=== PATIENT | male | born 1955 | race Caucasian/White ===

== ENCOUNTER → 2019-04-28 11:53 | Outpatient (CLI) | payer OTHER, SELFPAY ==
--- NOTE | 2019-04-28 11:55 | DI.RAD.S_ITS ---
PROCEDURE: XR SHOULDER RT MIN 2V INDICATIONS: right shoulder pain TECHNIQUE: 3 views of the shoulder were acquired. COMPARISON: None. FINDINGS: Bones: No fractures or dislocations. No suspicious bony lesions. Visualized ribs appear intact. Soft tissues: No suspicious soft tissue calcifications. IMPRESSION: Normal right shoulder radiographs. Dictated by: Halie Landry M.D. on 04/28/2019 at 17:43 Approved by: Halie Landry M.D. on 04/28/2019 at 17:43
[2019-04-28 12:29] LABS: BUN Creatinine Ratio 22.2 (6-22); Blood Urea Nitrogen 20 mg/dL (9-20); Carbon Dioxide 27 mmol/L (22-32); Chloride 103 mmol/L (98-107); Estimated Glomerular Filt Rate > 60.0 mL/min (>60); Glucose 108 mg/dL (80-110); HEMOLYSIS < 15 (0-50); Potassium 4.4 mmol/L (3.4-5.1); Sodium 139 mmol/L (137-145)
[2019-04-28 16:09] LABS: Vitamin D 25 Hydroxy (D3) 25.7 ng/mL (30.0-100.0)
== END ==
PROVIDERS: PCP Student in an Organized Health Care Education/Training Program; Visit Provider Student in an Organized Health Care Education/Training Program
DX: M25.511 Pain in right shoulder (principal); E55.9 Vitamin D deficiency, unspecified; G47.33 Obstructive sleep apnea (adult) (pediatric); N13.8 Other obstructive and reflux uropathy; N40.1 Benign prostatic hyperplasia with lower urinary tract symptoms; N52.9 Male erectile dysfunction, unspecified
CPT/HCPCS: 36415; 73030; 80048; 82306

== ENCOUNTER 2019-08-14 08:12 | Day surgery (SDC) | payer OTHER, SELFPAY ==
--- NOTE | 2019-08-14 | PATH_ITS ---
[facility] Accession Number: [id number] . 01 Material submitted: . body - POLYP AT 50 CM . 02 Diagnosis: Colon, Polyp at 50 cm, Biopsy: Hyperplastic polyp. Additional levels were examined. [facility] 08/18/2019 1503 Local . 02 Electronically signed: . Kaylie Martinez MD, Pathologist NPI- [id number] . 01 Gross description: . POLYP AT 50 CM: Received in formalin is 1 fragment(s) of penaloza, soft tissue measuring 0.3 x 0.2 x 0.2 cm submitted entirely in 1 cassette(s) /DM 08/14/2019 1936 Local . 02 Pathologist provided ICD-10: K63.5 . 02 CPT . 991929 Performed at: 01 [facility] [address] [id number] MD Cody Hansen MD Phone: [phone] Performed at: 02 [facility] [place] [address] [place], [place] [id number] MD Kaylie Martinez MD Phone: [phone]
[2019-08-14] MEDS: SODIUM CHLORIDE 0.9% 1,000 ML 84 ML IV (08:26)
[2019-08-14 08:38] VITALS: BP 118/82; PULSE 67; RESP 16; TEMP 36.2; O2SAT 94; BMI 30.2
--- NOTE | 2019-08-14 09:11 | PM.HP.1 ---
History of Present Illness History of Present Illness Date Patient Seen: 08/14/19 Time Patient Seen: 09:11 Chief complaint: [id number] Narrative: This is a 64-year-old man who is here for follow-up screening colonoscopy. His 1st colonoscopy was over 10 years ago. He was told that he is now due for a follow-up colonoscopy. He denies any melena, hematochezia, unexplained weight loss, abdominal pain, or other concerning symptoms. He has a significant history of sleep apnea and is awaiting a new BiPAP machine which he says that he will be using at home. Explained that we may need to use an oral airway during this procedure or other interventions to make sure he is well oxygenated. ROS: Thirteen system review is negative other than as mentioned below and in HPI. PE: GENERAL: Well groomed and cooperative. Appears stated age. Answers questions promptly and appropriately. Vital signs noted. HENT: Normocephalic, atraumatic. Hearing intact. Oral mucosa is pink and moist. EYES: Conjunctiva pink, sclera white, no periorbital swelling. CARDIOVASCULAR: Regular rate. No pedal edema. RESPIRATORY: Normal respiratory rate, breathing comfortably on room air. GASTROINTESTINAL: Abdomen soft and non-distended GENITALURINARY: No flank tenderness. MUSCULOSKELETAL: Equal tone and mass bilaterally. SKIN: Warm, dry, soft, appropriate color for ethnicity. No other lesions, rashes, or wounds. NEURO: Alert and Oriented X 3. No gross sensory deficits, or cognitive issues. PSYCH: Appropriate affect and mood. Patient History Medical History GERD (gastroesophageal reflux disease) (Chronic) History of degenerative joint disease (Chronic) Insomnia (Chronic) Lumbago (Chronic) Obesity (BMI 30.0-34.9) (Chronic) Obstructive sleep apnea syndrome (Chronic 09/23/15) Family & Social History Social History: household members significant other Tobacco & Substance use: Smoking Status Never smoker Meds Home Medications and Allergies Home Medications Medication Instructions Recorded Confirmed Type ibuprofen 200 mg PO Q6H #0 03/31/12 08/14/19 History esomeprazole magnesium [Nexium] 40 mg PO Q DAY #30 07/17/12 08/14/19 Rx cyclobenzaprine 10 mg PO TIDP PRN #45 tab 12/09/17 08/14/19 Rx sildenafil (pulm.hypertension) 20 20 mg PO DAILY PRN #30 tab 02/25/19 08/14/19 Rx mg tablet fenofibrate nanocrystallized 145 145 mg PO Q DAY #90 tab 05/01/19 08/14/19 Rx mg tablet Allergies Allergy/AdvReac Type Severity Reaction Status Date / Time No Known Drug Allergies Allergy Verified 08/14/19 08:22 Exam Vital Signs (past 8 hours): - 08/14/19 08:38 Temperature 97.2 F L Pulse Rate 67 Respiratory Rate 16 Blood Pressure 118/82 Pulse Oximetry 94 Oxygen Delivery Method Room Air Assessment & Plan Assessment and plan (1) Colon cancer screening: Current visit: Yes Status: Acute Assessment & Plan narrative: A 64-year-old man here for follow-up screening colonoscopy. Risks and benefits of colonoscopy and possible polypectomy were discussed with the patient including risk of bleeding, perforation, need for additional procedures, and the risks of anesthesia. The patient desires to proceed with his colonoscopy procedure. Plan: Proceed with colonoscopy Time Spent With Patient Time with patient: 15-24 minutes
[2019-08-14 09:42] VITALS: BP 124/82; PULSE 64; RESP 12; TEMP 36.1; O2SAT 92
[2019-08-14] MEDS: MIDAZOLAM 5 MG/5 ML VIAL IV (09:42)
--- NOTE | 2019-08-14 09:42 | PM.OP.ENDO ---
Operative Date/Time/Diagnoses Date of procedure: 08/14/19 Time of procedure: 09:42 Pre-op diagnosis: Average risk for colon cancer, appropriate age for repeat screening colonoscopy Post-op diagnosis: other (Colon polyps) Procedure & Clinicians Study performed: Colonoscopy, polypectomy x1 with cold forceps Same procedure as scheduled: Yes Indications: Average risk for colon cancer Surgeon: Brea Gale Procedure Notes SCOAP/Timeout: Performed Procedure in detail: The patient was brought to the room and placed in left lateral decubitus position with all bony prominences padded. A time-out was performed and then the patient was given procedural sedation starting with [4] mg of Versed and [100] mcg of fentanyl. Vitals were monitored throughout the procedure and remained stable. Once adequately sedated the procedure was begun. A rectal exam was performed revealing [no abnormalities]. The colonoscope was then introduced to the rectum and advanced to the cecum in the usual fashion. []The cecum was identified by the appendiceal orifice, the mucosal try fold, and the ileocecal valve. The scope was then retracted while rotating side to side and examining each mucosal fold. [At 50 cm from the anal verge a small sessile polyp was found and removed completely with cold forceps.] At the conclusion procedure retroflexion was performed and [small grade 1-2 internal hemorrhoids without stigmata of bleeding were seen]. The scope was then withdrawn from the rectum the procedure was concluded. The patient tolerated the procedure well was transferred to the PACU in stable condition. Scope withdrawal time: 12 Sedation minutes: 23 Findings: polyp Specimen(s): other (One small flat polyp was removed at 50 cm from the anal verge, and sent for pathology) Complications: none Impression: Relatively normal colon, with a single polyp found and removed Post-procedure Recommendations: Colonscopy in 10 years (If pathology results are non neoplastic) Follow up: as needed Disposition: PACU
[2019-08-14] MEDS: fentaNYL 250 MCG/5 ML INJ IV (09:43)
[2019-08-14 09:47] VITALS: BP 119/81; PULSE 68; RESP 12; O2SAT 97
[2019-08-14 09:52] VITALS: BP 111/81; PULSE 67; RESP 11; O2SAT 95
[2019-08-14 09:59] VITALS: BP 114/80; PULSE 65; RESP 12; TEMP 36.6; O2SAT 96
[2019-08-14 10:19] VITALS: BP 115/80; PULSE 62; TEMP 36.3; O2SAT 96
== END 2019-08-14 10:34 | disposition home or self-care (01) ==
PROVIDERS: PCP Student in an Organized Health Care Education/Training Program; Visit Provider Surgery
PROC: 0DJD8ZZ Inspection of Lower Intestinal Tract, Via Natural or Artificial Opening Endoscopic (ICD-10-PCS; CPT 45378; principal; 2019-08-14 09:45)
DX: Z12.11 Encounter for screening for malignant neoplasm of colon (principal); K64.0 First degree hemorrhoids; K63.5 Polyp of colon
CPT/HCPCS: 45380; 99152; J2250; J3010

== ENCOUNTER 2019-09-09 07:30 | Outpatient (RCR) | payer OTHER, SELFPAY ==
--- NOTE | 2019-06-30 12:59 | PT.OIE ---
Current Diagnoses Pain in right shoulder (06/30/19) Past Medical History (Last Reviewed 05/25/19 @ 16:33 by Chester Freire MD) GERD (gastroesophageal reflux disease) (Chronic) History of degenerative joint disease (Chronic) Insomnia (Chronic) Lumbago (Chronic) Obesity (BMI 30.0-34.9) (Chronic) Obstructive sleep apnea syndrome (Chronic 09/23/15) Visit Care Team Role Provider Type Jamari Elizabeth MD Attending Provider Physician Primary Care Provider Specialty: Internal Medicine Address: [address] [place] [address], [facility] Email: [email or web address] Physical Therapy Initial Evaluation PT-OP-A Visit Information Start: 06/30/19 07:28 Freq: Status: Active Protocol: Document 06/30/19 07:30 AMB (Rec: 06/30/19 09:44 AMB [email or web address]) Out-Patient Physical Therapy Visit Information Visit Information Visit Type Initial Evaluation Visit Start Time 07:30 Visit Stop Time 08:14 Total Visit Minutes 44 Visit Number 1 PT-OP-B Current Condition Start: 06/30/19 07:28 Freq: Status: Active Protocol: Document 06/30/19 07:30 AMB (Rec: 06/30/19 09:44 AMB [email or web address]) Current Condition History of Current Condition Onset Date 1 year ago Current Complaints R shoulder pain with reaching History of Current Condition Min reports he fell while hiking 30 years ago on his lateral shoulder. His shoulder was painful for about a year after that fall, and just got better on its own. Now for the past year it has been more painful again. No pain at rest, but pain with reaching that persists for about 30 seconds. Treatment Goals Patient/Caregiver Goals Return to reaching overhead without pain, return to basketball, be able to throw overhead. Current Functional Impairments (Reported) Functional Limitations- ADL's Pain with reaching behind back , reaching into backseate of car. Personal Factors Other Personal Factors That May Effect Retiring soon, so will be Therapy/Recovery going on a lot of trips soon PT-OP-C Subjective Start: 06/30/19 07:28 Freq: Status: Active Protocol: Document 06/30/19 07:30 AMB (Rec: 06/30/19 09:44 AMB [email or web address]) Patient Questionnaires Quick Dash- Upper Extremity Quick Dash UE Score 20 Quick Dash UE Impairment 20 to 39% Impaired (Score 20- 39) OP-PT Pain Assessment Location Right Posterior Shoulder Intensity 6 Scale Used Numeric (1 - 10) Pain Aggravating Factors Activity,Exercise,Lifting PT-OP-J Posture/Palpation/Skin Start: 06/30/19 07:28 Freq: Status: Active Protocol: Document 06/30/19 07:30 AMB (Rec: 06/30/19 10:00 AMB [email or web address]) Posture Evaluation Comments Posture Comments Increased thoracic kyphosis with forward head and rounded shoulders, no scapular winging . Palpation Assessment Location One Palpation Location R shoulder Palpation Details No tenderness over biceps or supraspinatus tendons. Pain is more over infraspinatus and teres minor but no pain with palpation. PT-OP-K Range of Motion Start: 06/30/19 07:28 Freq: Status: Active Protocol: Document 06/30/19 07:30 AMB (Rec: 06/30/19 10:00 AMB [email or web address]) Shoulder Goniometric Range of Motion Shoulder Right Passive Testing Position Supine External Rotation at 90 degrees 25 Abduction Internal Rotation 25 Right Active Testing Position Standing Flexion 155 Abduction 130 External Rotation at 0 degrees Abduction 65 Internal Rotation Behind Back (text) T12 Left Active Testing Position Standing Flexion 170 Abduction 180 PT-OP-L Special Tests Start: 06/30/19 07:28 Freq: Status: Active Protocol: Document 06/30/19 07:30 AMB (Rec: 06/30/19 10:00 AMB [email or web address]) Special Tests Shoulder Special Tests Lift-Off Rotator Cuff Test Results positive on R Neer Impingement Test Results positive on R Abraham Cr Impingement Test Results positive on R PT-OP-M Strength Start: 06/30/19 07:28 Freq: Status: Active Protocol: Document 06/30/19 07:30 AMB (Rec: 06/30/19 10:00 AMB [email or web address]) Shoulder Strength Shoulder Manual Muscle Testing Right Flexion 4+ Good+ Extension 4+ Good+ Abduction (C5) 4 Good External Rotation 4+ Good+ Internal Rotation 4+ Good+ Left Flexion 5 Normal Extension 5 Normal Abduction (C5) 4+ Good+ External Rotation 5 Normal Internal Rotation 5 Normal PT-OP-Q Treatments Start: 06/30/19 07:28 Freq: Status: Active Protocol: Document 06/30/19 07:30 AMB (Rec: 06/30/19 10:00 AMB [email or web address]) Therapeutic Exercises Standing Exercises 3 Standing Exercise Name pec stretch doorway and corner Comments increase pain 2 Standing Exercise Name cross body stretch Reps/Minutes 30x2 Comments HEP 1 Standing Exercise Name isometrics at wall: ER, abd, ext Reps/Minutes 5x5 Comments HEP PT-OP-T Assessment and Plan Start: 06/30/19 07:28 Freq: Status: Active Protocol: Document 06/30/19 07:30 AMB (Rec: 06/30/19 10:02 AMB [email or web address]) Physical Therapy Assessment Rehab Potential Rehabilitation Potential Good Evaluation Complexity Number of Personal Factors/Comorbidities 1-2 Number of Body Systems Impaired 4 or More Clinical Presentation at Evaluation Stable Impairments Impairments Functional Activities,Pain,ROM ,Strength Goals Two Impairment pain Short Term Goal (STG) Min will reach behind his back without increasing shoulder pain. STG Duration 4 weeks Assisted Goal (LTG) Min will reach behind him while in his car without an increase in shoulder pain. LTG Duration 8 weeks One Impairment ROM Short Term Goal (STG) Min will increase his flexion AROM to 165 degrees without shoulder pain. STG Duration 4 weeks Assisted Goal (LTG) Min will increase his shoulder abduction AROM to 165 degrees without pain. LTG Duration 8 weeks Assessment Summary Assessment Min attends physical therapy with signs and symptoms consistent with glenohumeral impingement due to injury decades ago that has resurfaced. His strength tests were good, but special tests were consistent with mild rotator cuff pathology. Fortunately his range of motion and strength are reasonably well maintained, so if we stabilize the area well he should be able to return to a high level of function, although overhead throwing will likely remain challenging . Physical Therapy Plan Frequency and Duration Frequency of Treatment 2x/Week Duration of Treatment 8 weeks Plan of Care Start Date 06/30/19 Plan of Care End Date 08/25/19 Therapeutic Interventions Therapeutic Interventions Home Exercise Program,Joint Mobilizations,Manual Therapy, Neuromuscular Re-education, Therapeutic Activities, Therapeutic Exercises Modalities Cold Pack/Ice Massage,Electric Stimulation,Hot Packs, Ultrasound Next Visit Focus/Plan Next Note Type Treatment Note Next Visit Plan Progress strengthening HEP, progress postural awareness/ scapular stability, joint mobilization as needed
--- NOTE | 2019-07-02 07:30 | PT.OTN ---
Current Diagnoses Pain in right shoulder (07/02/19) Physical Therapy Treatment Note PT-OP-A Visit Information Start: 06/30/19 07:28 Freq: Status: Active Protocol: Document 07/02/19 07:30 AMB (Rec: 07/02/19 08:40 AMB [email or web address]) Out-Patient Physical Therapy Visit Information Visit Information Visit Type Treatment Note Visit Start Time 07:30 Visit Stop Time 08:14 Total Visit Minutes 44 Visit Number 2 PT-OP-B Current Condition Start: 06/30/19 07:28 Freq: Status: Active Protocol: Document 06/30/19 07:30 AMB (Rec: 06/30/19 09:44 AMB [email or web address]) Current Condition History of Current Condition Onset Date 1 year ago Current Complaints R shoulder pain with reaching History of Current Condition Min reports he fell while hiking 30 years ago on his lateral shoulder. His shoulder was painful for about a year after that fall, and just got better on its own. Now for the past year it has been more painful again. No pain at rest, but pain with reaching that persists for about 30 seconds. Treatment Goals Patient/Caregiver Goals Return to reaching overhead without pain, return to basketball, be able to throw overhead. Current Functional Impairments (Reported) Functional Limitations- ADL's Pain with reaching behind back , reaching into backseate of car. Personal Factors Other Personal Factors That May Effect Retiring soon, so will be Therapy/Recovery going on a lot of trips soon PT-OP-C Subjective Start: 06/30/19 07:28 Freq: Status: Active Protocol: Document 07/02/19 07:30 AMB (Rec: 07/02/19 08:41 AMB [email or web address]) OP-PT Subjective Patient Comments Patient Comments Pt is doing well, a little sore from working in the field yesterday. PT-OP-J Posture/Palpation/Skin Start: 06/30/19 07:28 Freq: Status: Active Protocol: Document 06/30/19 07:30 AMB (Rec: 06/30/19 10:00 AMB [email or web address]) Posture Evaluation Comments Posture Comments Increased thoracic kyphosis with forward head and rounded shoulders, no scapular winging . Palpation Assessment Location One Palpation Location R shoulder Palpation Details No tenderness over biceps or supraspinatus tendons. Pain is more over infraspinatus and teres minor but no pain with palpation. PT-OP-K Range of Motion Start: 06/30/19 07:28 Freq: Status: Active Protocol: Document 06/30/19 07:30 AMB (Rec: 06/30/19 10:00 AMB [email or web address]) Shoulder Goniometric Range of Motion Shoulder Right Passive Testing Position Supine External Rotation at 90 degrees 25 Abduction Internal Rotation 25 Right Active Testing Position Standing Flexion 155 Abduction 130 External Rotation at 0 degrees Abduction 65 Internal Rotation Behind Back (text) T12 Left Active Testing Position Standing Flexion 170 Abduction 180 PT-OP-L Special Tests Start: 06/30/19 07:28 Freq: Status: Active Protocol: Document 06/30/19 07:30 AMB (Rec: 06/30/19 10:00 AMB [email or web address]) Special Tests Shoulder Special Tests Lift-Off Rotator Cuff Test Results positive on R Neer Impingement Test Results positive on R Abraham Cr Impingement Test Results positive on R PT-OP-M Strength Start: 06/30/19 07:28 Freq: Status: Active Protocol: Document 06/30/19 07:30 AMB (Rec: 06/30/19 10:00 AMB [email or web address]) Shoulder Strength Shoulder Manual Muscle Testing Right Flexion 4+ Good+ Extension 4+ Good+ Abduction (C5) 4 Good External Rotation 4+ Good+ Internal Rotation 4+ Good+ Left Flexion 5 Normal Extension 5 Normal Abduction (C5) 4+ Good+ External Rotation 5 Normal Internal Rotation 5 Normal PT-OP-Q Treatments Start: 06/30/19 07:28 Freq: Status: Active Protocol: Document 07/02/19 07:30 AMB (Rec: 07/02/19 08:40 AMB [email or web address]) Therapeutic Exercises Prone Exercises 1 Prone Exercise Name I, T Reps/Minutes 10 Comments AROM Sidelying Exercises 2 Sidelying Exercise Name abduction Resistance #2 Reps/Minutes 2x10 Comments to 45 degrees 1 Sidelying Exercise Name ER Resistance 2# Reps/Minutes 1x10 Standing Exercises 5 Standing Exercise Name t band rows Resistance #2 t band Comments 2x10 4 Standing Exercise Name tband ER/IR Resistance #2 t band Reps/Minutes 1x10 2 Standing Exercise Name cross body stretch Reps/Minutes 30x2 Comments HEP Manual Therapy Treatment Joint Mobilizations 1 Joint GH Direction AP, inferior Comments with PROM flexion/ abduction Manual Techniques 1 Type contract relax Comments IR/ER PT-OP-T Assessment and Plan Start: 06/30/19 07:28 Freq: Status: Active Protocol: Document 07/02/19 07:30 AMB (Rec: 07/02/19 08:40 AMB [email or web address]) Physical Therapy Assessment Assessment Summary Assessment Eb is doing well with his exercises, but was a little sore with them. Tolerated t band and weights well, but prone Y,T was painful. Physical Therapy Plan Next Visit Focus/Plan Next Note Type Treatment Note Next Visit Plan Progress strengthening HEP, progress postural awareness/ scapular stability, joint mobilization as needed
--- NOTE | 2019-07-15 11:45 | PT.OTN ---
Current Diagnoses Pain in right shoulder (07/15/19) Physical Therapy Treatment Note PT-OP-A Visit Information Start: 06/30/19 07:28 Freq: Status: Active Protocol: Document 07/15/19 07:30 AMB (Rec: 07/15/19 07:36 AMB [email or web address]) Out-Patient Physical Therapy Visit Information Visit Information Visit Type Treatment Note Visit Start Time 07:31 Visit Stop Time 08:15 Total Visit Minutes 44 Visit Number 3 PT-OP-B Current Condition Start: 06/30/19 07:28 Freq: Status: Active Protocol: Document 06/30/19 07:30 AMB (Rec: 06/30/19 09:44 AMB [email or web address]) Current Condition History of Current Condition Onset Date 1 year ago Current Complaints R shoulder pain with reaching History of Current Condition Min reports he fell while hiking 30 years ago on his lateral shoulder. His shoulder was painful for about a year after that fall, and just got better on its own. Now for the past year it has been more painful again. No pain at rest, but pain with reaching that persists for about 30 seconds. Treatment Goals Patient/Caregiver Goals Return to reaching overhead without pain, return to basketball, be able to throw overhead. Current Functional Impairments (Reported) Functional Limitations- ADL's Pain with reaching behind back , reaching into backseate of car. Personal Factors Other Personal Factors That May Effect Retiring soon, so will be Therapy/Recovery going on a lot of trips soon PT-OP-C Subjective Start: 06/30/19 07:28 Freq: Status: Active Protocol: Document 07/15/19 07:30 AMB (Rec: 07/15/19 07:36 AMB [id number]) OP-PT Subjective Patient Comments Patient Comments Pt overall feels that things are progressing, able to reach a little more with less pain. PT-OP-J Posture/Palpation/Skin Start: 06/30/19 07:28 Freq: Status: Active Protocol: Document 06/30/19 07:30 AMB (Rec: 06/30/19 10:00 AMB [email or web address]) Posture Evaluation Comments Posture Comments Increased thoracic kyphosis with forward head and rounded shoulders, no scapular winging . Palpation Assessment Location One Palpation Location R shoulder Palpation Details No tenderness over biceps or supraspinatus tendons. Pain is more over infraspinatus and teres minor but no pain with palpation. PT-OP-K Range of Motion Start: 06/30/19 07:28 Freq: Status: Active Protocol: Document 06/30/19 07:30 AMB (Rec: 06/30/19 10:00 AMB [email or web address]) Shoulder Goniometric Range of Motion Shoulder Right Passive Testing Position Supine External Rotation at 90 degrees 25 Abduction Internal Rotation 25 Right Active Testing Position Standing Flexion 155 Abduction 130 External Rotation at 0 degrees Abduction 65 Internal Rotation Behind Back (text) T12 Left Active Testing Position Standing Flexion 170 Abduction 180 PT-OP-L Special Tests Start: 06/30/19 07:28 Freq: Status: Active Protocol: Document 06/30/19 07:30 AMB (Rec: 06/30/19 10:00 AMB [email or web address]) Special Tests Shoulder Special Tests Lift-Off Rotator Cuff Test Results positive on R Neer Impingement Test Results positive on R Abraham Cr Impingement Test Results positive on R PT-OP-M Strength Start: 06/30/19 07:28 Freq: Status: Active Protocol: Document 06/30/19 07:30 AMB (Rec: 06/30/19 10:00 AMB [email or web address]) Shoulder Strength Shoulder Manual Muscle Testing Right Flexion 4+ Good+ Extension 4+ Good+ Abduction (C5) 4 Good External Rotation 4+ Good+ Internal Rotation 4+ Good+ Left Flexion 5 Normal Extension 5 Normal Abduction (C5) 4+ Good+ External Rotation 5 Normal Internal Rotation 5 Normal PT-OP-Q Treatments Start: 06/30/19 07:28 Freq: Status: Active Protocol: Document 07/15/19 07:30 AMB (Rec: 07/15/19 11:45 AMB [email or web address]) Cardio Equipment Upper Body Ergometer (UBE) Duration (Minutes) 4 Other fwd, backward Therapeutic Exercises Supine Exercises 1 Supine Exercise Name scapular punch Resistance 5# Reps/Minutes 2x10 Sidelying Exercises 2 Sidelying Exercise Name abduction Resistance #2 Reps/Minutes 2x10 Comments to 45 degrees 1 Sidelying Exercise Name ER Resistance 2# Reps/Minutes 1x10 Standing Exercises 6 Standing Exercise Name extension, flexion, abduction Resistance #3 t band Reps/Minutes 2x10 ea 5 Standing Exercise Name t band rows Resistance #2 t band Comments 2x10 4 Standing Exercise Name tband ER/IR Resistance #2 t band Reps/Minutes 1x10 Manual Therapy Treatment Joint Mobilizations 1 Joint GH Direction AP, inferior Comments with PROM flexion/ abduction PT-OP-T Assessment and Plan Start: 06/30/19 07:28 Freq: Status: Active Protocol: Document 07/15/19 07:30 AMB (Rec: 07/15/19 07:36 AMB [id number]) Physical Therapy Assessment Assessment Summary Assessment Eb tolerated progression of exercises well. Physical Therapy Plan Next Visit Focus/Plan Next Note Type Treatment Note Next Visit Plan Progress strengthening HEP, progress postural awareness/ scapular stability, joint mobilization as needed
--- NOTE | 2019-08-10 12:51 | PT.OTN ---
Current Diagnoses Pain in right shoulder (08/10/19) Physical Therapy Treatment Note PT-OP-A Visit Information Start: 06/30/19 07:28 Freq: Status: Active Protocol: Document 08/10/19 08:15 AMB (Rec: 08/10/19 10:30 AMB [email or web address]) Out-Patient Physical Therapy Visit Information Visit Information Visit Type Treatment Note Visit Start Time 08:15 Visit Stop Time 08:55 Total Visit Minutes 40 Visit Number 4 PT-OP-B Current Condition Start: 06/30/19 07:28 Freq: Status: Active Protocol: Document 06/30/19 07:30 AMB (Rec: 06/30/19 09:44 AMB [email or web address]) Current Condition History of Current Condition Onset Date 1 year ago Current Complaints R shoulder pain with reaching History of Current Condition Min reports he fell while hiking 30 years ago on his lateral shoulder. His shoulder was painful for about a year after that fall, and just got better on its own. Now for the past year it has been more painful again. No pain at rest, but pain with reaching that persists for about 30 seconds. Treatment Goals Patient/Caregiver Goals Return to reaching overhead without pain, return to basketball, be able to throw overhead. Current Functional Impairments (Reported) Functional Limitations- ADL's Pain with reaching behind back , reaching into backseate of car. Personal Factors Other Personal Factors That May Effect Retiring soon, so will be Therapy/Recovery going on a lot of trips soon PT-OP-C Subjective Start: 06/30/19 07:28 Freq: Status: Active Protocol: Document 08/10/19 08:15 AMB (Rec: 08/10/19 10:30 AMB [email or web address]) OP-PT Subjective Patient Comments Patient Comments Pt is starting to notice some improvements, reaching behind him in the car is getting less painful. Although he can still notice pain at end range , he does not feel it as intense. PT-OP-J Posture/Palpation/Skin Start: 06/30/19 07:28 Freq: Status: Active Protocol: Document 06/30/19 07:30 AMB (Rec: 06/30/19 10:00 AMB [email or web address]) Posture Evaluation Comments Posture Comments Increased thoracic kyphosis with forward head and rounded shoulders, no scapular winging . Palpation Assessment Location One Palpation Location R shoulder Palpation Details No tenderness over biceps or supraspinatus tendons. Pain is more over infraspinatus and teres minor but no pain with palpation. PT-OP-K Range of Motion Start: 06/30/19 07:28 Freq: Status: Active Protocol: Document 08/10/19 08:33 AMB (Rec: 08/10/19 08:53 AMB [id number]) Shoulder Goniometric Range of Motion Shoulder Right Active Flexion 160 Abduction 135 PT-OP-L Special Tests Start: 06/30/19 07:28 Freq: Status: Active Protocol: Document 06/30/19 07:30 AMB (Rec: 06/30/19 10:00 AMB [email or web address]) Special Tests Shoulder Special Tests Lift-Off Rotator Cuff Test Results positive on R Neer Impingement Test Results positive on R Abraham Cr Impingement Test Results positive on R PT-OP-M Strength Start: 06/30/19 07:28 Freq: Status: Active Protocol: Document 06/30/19 07:30 AMB (Rec: 06/30/19 10:00 AMB [email or web address]) Shoulder Strength Shoulder Manual Muscle Testing Right Flexion 4+ Good+ Extension 4+ Good+ Abduction (C5) 4 Good External Rotation 4+ Good+ Internal Rotation 4+ Good+ Left Flexion 5 Normal Extension 5 Normal Abduction (C5) 4+ Good+ External Rotation 5 Normal Internal Rotation 5 Normal PT-OP-Q Treatments Start: 06/30/19 07:28 Freq: Status: Active Protocol: Document 08/10/19 08:15 AMB (Rec: 08/10/19 12:50 AMB [email or web address]) Cardio Equipment Upper Body Ergometer (UBE) Duration (Minutes) 4 Other fwd, backward Therapeutic Exercises Standing Exercises 6 Standing Exercise Name extension, flexion, abduction Resistance #3 t band Reps/Minutes 2x10 ea 5 Standing Exercise Name t band rows Resistance #3 t band Comments 2x10 4 Standing Exercise Name tband ER/IR Resistance #2 t band Reps/Minutes 1x10 3 Standing Exercise Name PNF D2 and D1 flexion Resistance #1 tband Reps/Minutes 2x10 1 Standing Exercise Name wall slide Reps/Minutes 20x2 Comments flexion and abduction Manual Therapy Treatment Joint Mobilizations 1 Joint GH Direction AP, inferior Comments with PROM flexion/ abduction PT-OP-T Assessment and Plan Start: 06/30/19 07:28 Freq: Status: Active Protocol: Document 08/10/19 08:15 AMB (Rec: 08/10/19 10:30 AMB [email or web address]) Physical Therapy Assessment Assessment Summary Assessment Stretching went well, PNF diagonals were challenging but doable with modifications. Physical Therapy Plan Next Visit Focus/Plan Next Note Type Treatment Note Next Visit Plan Progress strengthening HEP, progress postural awareness/ scapular stability, joint mobilization as needed
--- NOTE | 2019-08-12 16:18 | PT.OTN ---
Current Diagnoses Pain in right shoulder (08/12/19) Physical Therapy Treatment Note PT-OP-A Visit Information Start: 06/30/19 07:28 Freq: Status: Active Protocol: Document 08/12/19 08:15 AMB (Rec: 08/12/19 16:18 AMB [email or web address]) Out-Patient Physical Therapy Visit Information Visit Information Visit Type Treatment Note Visit Start Time 08:15 Visit Stop Time 08:55 Total Visit Minutes 40 Visit Number 5 PT-OP-B Current Condition Start: 06/30/19 07:28 Freq: Status: Active Protocol: Document 06/30/19 07:30 AMB (Rec: 06/30/19 09:44 AMB [email or web address]) Current Condition History of Current Condition Onset Date 1 year ago Current Complaints R shoulder pain with reaching History of Current Condition Min reports he fell while hiking 30 years ago on his lateral shoulder. His shoulder was painful for about a year after that fall, and just got better on its own. Now for the past year it has been more painful again. No pain at rest, but pain with reaching that persists for about 30 seconds. Treatment Goals Patient/Caregiver Goals Return to reaching overhead without pain, return to basketball, be able to throw overhead. Current Functional Impairments (Reported) Functional Limitations- ADL's Pain with reaching behind back , reaching into backseate of car. Personal Factors Other Personal Factors That May Effect Retiring soon, so will be Therapy/Recovery going on a lot of trips soon PT-OP-C Subjective Start: 06/30/19 07:28 Freq: Status: Active Protocol: Document 08/12/19 08:15 AMB (Rec: 08/12/19 16:18 AMB [email or web address]) OP-PT Subjective Patient Comments Patient Comments Pt is continuing to feel improvement, but continues to have pain with sleeping. He is thinking that he might be able to play basketball at this point if he's careful. Pt was sore after last treatment. PT-OP-J Posture/Palpation/Skin Start: 06/30/19 07:28 Freq: Status: Active Protocol: Document 06/30/19 07:30 AMB (Rec: 06/30/19 10:00 AMB [email or web address]) Posture Evaluation Comments Posture Comments Increased thoracic kyphosis with forward head and rounded shoulders, no scapular winging . Palpation Assessment Location One Palpation Location R shoulder Palpation Details No tenderness over biceps or supraspinatus tendons. Pain is more over infraspinatus and teres minor but no pain with palpation. PT-OP-K Range of Motion Start: 06/30/19 07:28 Freq: Status: Active Protocol: Document 08/10/19 08:33 AMB (Rec: 08/10/19 08:53 AMB [id number]) Shoulder Goniometric Range of Motion Shoulder Right Active Flexion 160 Abduction 135 PT-OP-L Special Tests Start: 06/30/19 07:28 Freq: Status: Active Protocol: Document 06/30/19 07:30 AMB (Rec: 06/30/19 10:00 AMB [email or web address]) Special Tests Shoulder Special Tests Lift-Off Rotator Cuff Test Results positive on R Neer Impingement Test Results positive on R Abraham Cr Impingement Test Results positive on R PT-OP-M Strength Start: 06/30/19 07:28 Freq: Status: Active Protocol: Document 06/30/19 07:30 AMB (Rec: 06/30/19 10:00 AMB [email or web address]) Shoulder Strength Shoulder Manual Muscle Testing Right Flexion 4+ Good+ Extension 4+ Good+ Abduction (C5) 4 Good External Rotation 4+ Good+ Internal Rotation 4+ Good+ Left Flexion 5 Normal Extension 5 Normal Abduction (C5) 4+ Good+ External Rotation 5 Normal Internal Rotation 5 Normal PT-OP-Q Treatments Start: 06/30/19 07:28 Freq: Status: Active Protocol: Document 08/12/19 08:15 AMB (Rec: 08/12/19 16:18 AMB [email or web address]) Therapeutic Exercises Standing Exercises 6 Standing Exercise Name extension, flexion, abduction Resistance #3 t band Reps/Minutes 2x10 ea 5 Standing Exercise Name t band rows Resistance #3 t band Comments 2x10 4 Standing Exercise Name tband ER/IR Resistance #2 t band Reps/Minutes 1x10 1 Standing Exercise Name wall slide Reps/Minutes 20x2 Comments flexion and abduction Manual Therapy Treatment Joint Mobilizations 1 Joint GH Direction AP, inferior Comments with PROM flexion/ abduction PT-OP-T Assessment and Plan Start: 06/30/19 07:28 Freq: Status: Active Protocol: Document 08/12/19 08:15 AMB (Rec: 08/12/19 16:18 AMB [email or web address]) Physical Therapy Assessment Assessment Summary Assessment Reduced strengthening today and worked more on stretching. Pain with end range abduction and ER, but not as intense as it used to be. Physical Therapy Plan Next Visit Focus/Plan Next Note Type Treatment Note Next Visit Plan See pt in one month, he feels like he is doing well, but wants to be able to test out playing basketball, continuing with HEP before being discharged.
--- NOTE | 2019-09-09 12:49 | PT.OTN ---
Current Diagnoses Pain in right shoulder (09/09/19) Physical Therapy Treatment Note PT-OP-A Visit Information Start: 06/30/19 07:28 Freq: Status: Active Protocol: Document 09/09/19 07:30 AMB (Rec: 09/10/19 12:44 AMB [email or web address]) Out-Patient Physical Therapy Visit Information Visit Information Visit Type Discharge Summary Visit Start Time 07:30 Visit Stop Time 08:15 Total Visit Minutes 45 Visit Number 6 PT-OP-B Current Condition Start: 06/30/19 07:28 Freq: Status: Active Protocol: Document 06/30/19 07:30 AMB (Rec: 06/30/19 09:44 AMB [email or web address]) Current Condition History of Current Condition Onset Date 1 year ago Current Complaints R shoulder pain with reaching History of Current Condition Min reports he fell while hiking 30 years ago on his lateral shoulder. His shoulder was painful for about a year after that fall, and just got better on its own. Now for the past year it has been more painful again. No pain at rest, but pain with reaching that persists for about 30 seconds. Treatment Goals Patient/Caregiver Goals Return to reaching overhead without pain, return to basketball, be able to throw overhead. Current Functional Impairments (Reported) Functional Limitations- ADL's Pain with reaching behind back , reaching into backseate of car. Personal Factors Other Personal Factors That May Effect Retiring soon, so will be Therapy/Recovery going on a lot of trips soon PT-OP-C Subjective Start: 06/30/19 07:28 Freq: Status: Active Protocol: Document 09/09/19 07:30 AMB (Rec: 09/10/19 12:44 AMB [email or web address]) OP-PT Subjective Patient Comments Patient Comments Pt has not yet returned to playing basketball, more due to scheduling than pain. He can still have pain when he sleeps on the shoulder. PT-OP-J Posture/Palpation/Skin Start: 06/30/19 07:28 Freq: Status: Active Protocol: Document 06/30/19 07:30 AMB (Rec: 06/30/19 10:00 AMB [email or web address]) Posture Evaluation Comments Posture Comments Increased thoracic kyphosis with forward head and rounded shoulders, no scapular winging . Palpation Assessment Location One Palpation Location R shoulder Palpation Details No tenderness over biceps or supraspinatus tendons. Pain is more over infraspinatus and teres minor but no pain with palpation. PT-OP-K Range of Motion Start: 06/30/19 07:28 Freq: Status: Active Protocol: Document 09/09/19 08:14 AMB (Rec: 09/09/19 08:16 AMB [id number]) Shoulder Goniometric Range of Motion Shoulder Right Passive External Rotation at 90 degrees 45 Abduction Internal Rotation 45 Right Active Flexion 160 Abduction 170 PT-OP-L Special Tests Start: 06/30/19 07:28 Freq: Status: Active Protocol: Document 06/30/19 07:30 AMB (Rec: 06/30/19 10:00 AMB [email or web address]) Special Tests Shoulder Special Tests Lift-Off Rotator Cuff Test Results positive on R Neer Impingement Test Results positive on R Abraham Cr Impingement Test Results positive on R PT-OP-M Strength Start: 06/30/19 07:28 Freq: Status: Active Protocol: Document 06/30/19 07:30 AMB (Rec: 06/30/19 10:00 AMB [email or web address]) Shoulder Strength Shoulder Manual Muscle Testing Right Flexion 4+ Good+ Extension 4+ Good+ Abduction (C5) 4 Good External Rotation 4+ Good+ Internal Rotation 4+ Good+ Left Flexion 5 Normal Extension 5 Normal Abduction (C5) 4+ Good+ External Rotation 5 Normal Internal Rotation 5 Normal PT-OP-Q Treatments Start: 06/30/19 07:28 Freq: Status: Active Protocol: Document 09/09/19 07:30 AMB (Rec: 09/10/19 12:44 AMB [email or web address]) Therapeutic Exercises Sidelying Exercises 2 Sidelying Exercise Name sleeper stretch Reps/Minutes 30x2 Standing Exercises 7 Standing Exercise Name IR at 90 degrees abduction Resistance #3 band Reps/Minutes 2x10 6 Standing Exercise Name extension, flexion, abduction Resistance #3 t band Reps/Minutes 2x10 ea 5 Standing Exercise Name t band rows Resistance #3 t band Comments 2x10 4 Standing Exercise Name tband ER/IR Resistance #2 t band Reps/Minutes 1x10 3 Standing Exercise Name PNF D2 and D1 flexion Resistance #1 tband Reps/Minutes 2x10 2 Standing Exercise Name pec stretch at corner Reps/Minutes 30x2 PT-OP-T Assessment and Plan Start: 06/30/19 07:28 Freq: Status: Active Protocol: Document 09/09/19 07:54 [facility] (Rec: 09/09/19 08:14 AMB [id number]) Physical Therapy Assessment Goals Two Impairment pain Short Term Goal (STG) Min will reach behind his back without increasing shoulder pain. STG Duration MET Care Home Goal (LTG) Min will reach behind him while in his car without an increase in shoulder pain. LTG Duration PARTIALLY MET One Impairment ROM Short Term Goal (STG) Min will increase his flexion AROM to 165 degrees without shoulder pain. STG Duration MET Survey Crew Chief Goal (LTG) Min will increase his shoulder abduction AROM to 165 degrees without pain. LTG Duration MET Assessment Summary Assessment Min has done well with PT. He states that the intensity and frequency of his pain has decreased by at least 75%. His range of motion, while not equal to the other side, has improved significantly. He does still have difficulty sleeping on the shoulder. He has joined a gym and was able to do the machines, but is keeping his resistance low for now. He should be able to continue to improve with his HEP and strengthening in the gym. Physical Therapy Plan Discharge Physical Therapy Discharge Reasons Goals Met
--- NOTE | 2019-09-09 12:52 | PT.OPPOC ---
Current Diagnoses Pain in right shoulder (09/09/19) Visit Care Team Role Provider Type Jamari Elizabeth MD Attending Provider Physician Primary Care Provider Specialty: Internal Medicine Address: [address] [place] [address], [address], [place], [address] Email: [email or web address] Plan Of Care PT-OP-T Assessment and Plan Start: 06/30/19 07:28 Freq: Status: Active Protocol: Document 09/09/19 07:54 AMB (Rec: 09/09/19 08:14 AMB [id number]) Physical Therapy Assessment Goals Two Impairment pain Short Term Goal (STG) Min will reach behind his back without increasing shoulder pain. STG Duration MET Detention Goal (LTG) Min will reach behind him while in his car without an increase in shoulder pain. LTG Duration PARTIALLY MET One Impairment ROM Short Term Goal (STG) Min will increase his flexion AROM to 165 degrees without shoulder pain. STG Duration MET Sample Color Maker Goal (LTG) Min will increase his shoulder abduction AROM to 165 degrees without pain. LTG Duration MET Assessment Summary Assessment Min has done well with PT. He states that the intensity and frequency of his pain has decreased by at least 75%. His range of motion, while not equal to the other side, has improved significantly. He does still have difficulty sleeping on the shoulder. He has joined a gym and was able to do the machines, but is keeping his resistance low for now. He should be able to continue to improve with his HEP and strengthening in the gym. Physical Therapy Plan Frequency and Duration Frequency of Treatment 1x/Week Duration of Treatment 1 week Plan of Care Start Date 09/09/19 Plan of Care End Date 09/16/19 Therapeutic Interventions Therapeutic Interventions Home Exercise Program,Joint Mobilizations,Manual Therapy, Neuromuscular Re-education, Therapeutic Activities, Therapeutic Exercises Modalities Cold Pack/Ice Massage,Electric Stimulation,Hot Packs, Ultrasound Discharge Physical Therapy Discharge Reasons Goals Met Plan of Care Dates Plan of Care Start Date 09/09/19 Plan of Care End Date 09/16/19
== END 2019-09-11 12:53 ==
LOC: PHYS 07:30
PROVIDERS: PCP Student in an Organized Health Care Education/Training Program; Visit Provider Student in an Organized Health Care Education/Training Program
DX: M25.511 Pain in right shoulder (principal)
CPT/HCPCS: 97110; 97140; 97161

== ENCOUNTER → 2021-11-15 07:42 | Outpatient (CLI) | payer MEDICARE, OTHER, SELFPAY ==
[2021-11-15 09:04] LABS: BUN Creatinine Ratio 18.6 (6-22); Blood Urea Nitrogen 21 mg/dL (9-20); Calcium 10.2 mg/dL (8.4-10.2); Carbon Dioxide 29 mmol/L (22-32); Chloride 105 mmol/L (98-107); Cholesterol 211 mg/dL (140-199); Estimated Glomerular Filt Rate > 60.0 mL/min (>60); Glucose 110 mg/dL (80-110); HDL Cholesterol 52 mg/dL (40-60); HEMOLYSIS < 15 (0-50); LDL Cholesterol Calculated 125 mg/dL (<100); Potassium 4.2 mmol/L (3.4-5.1); Sodium 139 mmol/L (137-145); Triglycerides 170 mg/dL (35-150)
[2021-11-15 09:36] LABS: Vitamin D 25 Hydroxy (D3) 40.3 ng/mL (30.0-100.0)
== END ==
PROVIDERS: PCP Student in an Organized Health Care Education/Training Program; Referring Provider Student in an Organized Health Care Education/Training Program; Visit Provider Student in an Organized Health Care Education/Training Program
DX: E78.2 Mixed hyperlipidemia (principal); Z12.5 Encounter for screening for malignant neoplasm of prostate; E55.9 Vitamin D deficiency, unspecified; Z79.899 Other long term (current) drug therapy
CPT/HCPCS: 36415; 80048; 80061; 82306; G0103